=== PATIENT | female | born 1960 | race Caucasian/White ===

== ENCOUNTER 2017-06-07 08:29 | Day surgery (SDC) | payer OTHER ==
[2017-06-07] MEDS ORDERED: LR 1,000 ML IV ONE (08:42)
[2017-06-07] MEDS ORDERED: LIDOCAINE 1% 2 ML INJ ID PRN (08:42)
--- NOTE | 2017-06-07 08:56 | PDGENHP ---
History & Physical Chief Complaint: dysphagia, screening colonoscopy Relevant Physical Exam: GEN: NAD. Cardiac: RRR. Lungs: CTA B. Abd: Soft, nt, nd
[2017-06-07 08:58] VITALS: PULSE 51
[2017-06-07] MEDS ORDERED: PROPOFOL/EMULSION 500 MG/50 ML BOTTLE IV ONE (08:59)
[2017-06-07] MEDS ORDERED: ONDANSETRON 4 MG/2 ML VIAL IVP PRN (09:04)
[2017-06-07] MEDS ORDERED: ACETAMINOPHEN 500 MG TAB PO PRN (09:04)
[2017-06-07] MEDS ORDERED: NALOXONE HCL 0.4 MG/ML INJ IVP PRN (09:04)
--- NOTE | 2017-06-07 09:04 | PDANEPAE ---
ANE History of Present Illness 57 yo F w h/o dysphagia, here for EGD and screening colo ANE Past Medical History - Cardiovascular History Hx Hypertension: No Hx Arrhythmias: No Hx Chest Pain: No Hx Coronary Artery / Peripheral Vascular Disease: No Hx CHF / Valvular Disease: No Hx Palpitations: No - Pulmonary History Hx COPD: No Hx Asthma/Reactive Airway Disease: No Hx Recent Upper Respiratory Infection: No Hx Oxygen in Use at Home: No Hx Sleep Apnea: Yes Sleep Apnea Screening Result - Last Documented: Positive Pulmonary History Comment: hx of bronchitis- over 1 yr ago - Neurologic History Hx Cerebrovascular Accident: No Hx Seizures: No Hx Dementia: No - Endocrine History Hx Diabetes: No - Renal History Hx Renal Disorders: No - Liver History Hx Hepatic Disorders: No - Neurological & Psychiatric Hx Hx Neurological and Psychiatric Disorders: No Neurological / Psychiatric History Comment: bulging disc L4- no problems - Cancer History Hx Cancer: Yes 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 bilat carpal tunnel surgeries-. ganglion cyst (Paul block). R great toe fusion-2011 ANE Review of Systems Review of Systems: - Exercise capacity METS (RN): 4 METS - Systems Muscolosketal: Reports: other (Rheumatoid Arthritis) ANE Patient History - Allergies Allergies/Adverse Reactions: Penicillins Allergy (Severe, Verified 05/30/17 16:04) Itching Sulfa (Sulfonamide Antibiotics) [Sulfa(Sulfonamide Antibiotics)] Allergy (Severe , Verified 05/30/17 16:04) Itching - Home Medications Home medications: home medication list seen and reviewed Home Medications: GABAPENTIN mg PO 10/07/12 [Last Taken 06/06/17] Leflunomide [Arava 10 mg (RX)] 02/18/13 [Last Taken 06/06/17] FLUoxetine 05/30/17 [Last Taken 06/06/17] Meloxicam 05/30/17 [Last Taken 05/31/17] Orencia 05/30/17 [Last Taken 06/05/17] Oxycodone HCl 05/30/17 [Last Taken 06/07/17 06:00] Prednisone 05/30/17 [Last Taken 06/06/17] - NPO status NPO Status: no food or drink >8 hours NPO Since - Liquids (Date): 06/06/17 NPO Since - Liquids (Time): 23:40 NPO Since - Solids (Date): 06/06/17 NPO Since - Solids (Time): 09:00 - Anes Hx Anes Hx: no prior problems - Smoking Hx Smoking Status: Never smoked - Alcohol Use Alcohol Use: Rarely - Family Anes Hx Family Anes Hx: none ANE Labs/Vital Signs - Vital Signs Blood Pressure: 131/74 Heart Rate: 51 Respiratory Rate: 20 O2 Sat (%): 92 Height: 167.64 cm Weight: 104.326 kg ANE Physical Exam - Airway Neck exam: FROM Mallampati Score: Class 2 Mouth exam: normal dental/mouth exam - Pulmonary Pulmonary: no respiratory distress, clear to auscultation - Cardiovascular Cardiovascular: regular rate and rhythym, no murmur, rub, or gallop - ASA Status ASA Status: III ANE Anesthesia Plan Anesthesia Plan: GA with mask Total IV Anesthesia: Yes
[2017-06-07] MEDS ORDERED: PROPOFOL 200 MG/20 ML VIAL ONE (09:29)
--- NOTE | 2017-06-07 09:37 | GIREPORT ---
[facility] - Endoscopy Department Patient Name: Aleja Banegas Procedure Date: 06/07/2017 8:54 AM Patient Type: Outpatient Attending / ER Physician: Blaise Mcclure MD Procedure: Upper GI endoscopy Indications: Dysphagia Providers: Blaise Mcclure MD Medicines: Monitored Anesthesia Care Complications: No immediate complications. Findings: No endoscopic abnormality was evident in the esophagus to explain the patient's complaint of dysphagia. Biopsies were taken with a cold force ps for histology. Verification of patient identification for the specimen was done by the physician and nurse using the patient's name and date . Estimated blood loss was minimal. The Z-line was regular and was found 38 cm from the incisors. Localized mild inflammation characterized by erosions, erythema and friability was found in the gastric antrum. Biopsies were taken with a cold forceps for histology. Verification of patient identification for the specimen was done by the physician and nurse using the patient's name a nd date. Estimated blood loss was minimal. Localized mild inflammation characterized by congestion (edema), erosio ns and erythema was found in the duodenal bulb. Estimated Blood Loss: Estimated blood loss: none. Post Op Diagnosis: - No endoscopic esophageal abnormality to explain patient's dysphagia. Biopsied to evaluate for eosinophilic esophagitis. - Z-line regular, 38 cm from the incisors. - Gastritis. Biopsied. - Duodenitis. Recommendation: - Discharge patient to home (with escort). - Resume previous diet. - Continue present medications. - Recommend acid suppression medication. - Return to GI clinic as previously scheduled. - Await pathology results. Results are available within 10 days. - Thank you for allowing me to participate in the care of your patient. Attending Participation: I personally performed the entire procedure. Blaise Mcclure MD Blaise Mcclure MD 06/07/2017 9:36:49 AM Number of Addenda: 0 Note Initiated On: 06/07/2017 8:54 AM Total Procedure Duration Time 0 hours 10 minutes 12 seconds [email or web address]
--- NOTE | 2017-06-07 09:38 | GIREPORT ---
[facility] Surgical Services - Endoscopy Department Patient Name: Aleja Banegas Procedure Date: 06/07/2017 8:52 AM Patient Type: Outpatient Attending / REJI Physician: Blaise Mcclure MD Procedure: Colonoscopy Indications: Screening for colorectal malignant neoplasm Providers: Blaise Mcclure MD Medicines: Monitored Anesthesia Care Complications: No immediate complications. Findings: The perianal and digital rectal examinations were normal. The terminal ileum appeared normal. The colon (entire examined portion) appeared normal. The retroflexed view of the distal rectum and anal verge was normal and showed no anal or rectal abnormalities. Estimated Blood Loss: Estimated blood loss: none. Post Op Diagnosis: - The examined portion of the ileum was normal. - The entire examined colon is normal. - The distal rectum and anal verge are normal on retroflexion view. - No specimens collected. Recommendation: - Discharge patient to home (with escort). - Resume previous diet. - Continue present medications. - Repeat colonoscopy in 10 years for screening purposes. - Thank you for allowing me to participate in the care of your patient. Attending Participation: I personally performed the entire procedure. Blaise Mcclure MD Blaise Mcclure MD 06/07/2017 9:38:14 AM Number of Addenda: 0 Note Initiated On: 06/07/2017 8:52 AM Total Procedure Duration Time 0 hours 15 minutes 46 seconds [id number]
[2017-06-07 09:57] VITALS: RESP 16; O2SAT 98
[2017-06-07 10:49] VITALS: BP 137/81
[2017-06-07 12:18] VITALS: TEMP 98.6
--- NOTE | 2017-06-07 13:09 | POSTANESTH ---
Post Anesthetic Evaluation Cardiovascular Status: Normal, Stable, Similar to Pre-Op Cond Respiratory Status: Normal, Stable, Similar to Pre-op Cond. Level of Consciousness/Mental Status: Can Participate in Eval, Alert and Oriented Pain Control: Adequate, Prn Tx Ordered Nausea/Vomiting Control: Adequate, Prn Tx Ordered Complications Possibly Related to Anesthesia: None Noted
== END 2017-06-07 11:50 | disposition home or self-care (01) ==
LOC: FSGY 08:29
PROVIDERS: ATTEND Internal Medicine Gastroenterology
PROC: 0DJD8ZZ Inspection of Lower Intestinal Tract, Via Natural or Artificial Opening Endoscopic (ICD-10-PCS; principal; 2017-06-07 10:00)
PROC: 0DB68ZX Excision of Stomach, Via Natural or Artificial Opening Endoscopic, Diagnostic (ICD-10-PCS; principal; 2017-06-07 10:00)
PROC: 0DB58ZX Excision of Esophagus, Via Natural or Artificial Opening Endoscopic, Diagnostic (ICD-10-PCS; principal; 2017-06-07 10:00)
DX: Z12.11 Encounter for screening for malignant neoplasm of colon (principal); K29.50 Unspecified chronic gastritis without bleeding; K29.80 Duodenitis without bleeding
CPT/HCPCS: J2704

== ENCOUNTER → 2018-12-20 | Day surgery (SDC) | payer OTHER ==
[~2018-12-20] MED LIST: BACITRACIN 50,000 UNITS/10 ML SYR IRR ONE; BUPIVACAINE 0.5% 30 ML SDV ONE; DEXAMETHASONE 4 MG/ML VIAL IVP PRN; LIDOCAINE 2% 5 ML SDV ONE; LR 1,000 ML IV ONE; MIDAZOLAM 2 MG/2 ML VIAL IVP ONE; NALOXONE HCL 0.4 MG/ML INJ IVP PRN; ONDANSETRON 4 MG/2 ML VIAL IVP PRN; OXYCODONE/APAP 5/325 TAB PO PRN; POLYMYXIN B SULFATE 500,000 UNIT/10 ML SYR IRR ONE; PROPOFOL/EMULSION 500 MG/50 ML BOTTLE IV ONE; ceFAZolin 2 GM/DEXTROSE 100 ML IV ONE; fentaNYL 100 MCG/2 ML INJ IVP PRN
--- NOTE | 2018-12-20 14:32 | PDHPUP ---
History & Physical Update H&P update statement: This history and physical update is based on an assessment of the patient which was completed after admission or registration (within 24 hours), but prior to the surgery/procedure. H&P update: H&P reviewed & patient examined, no change in patient's condition since H&P completed
--- NOTE | 2018-12-20 14:41 | PDANEPAE ---
ANE History of Present Illness Right neuroma excision ANE Past Medical History - Cardiovascular History Hx Hypertension: No Hx Arrhythmias: No Hx Chest Pain: No Hx Coronary Artery / Peripheral Vascular Disease: No Hx CHF / Valvular Disease: No Hx Palpitations: No - Pulmonary History Hx COPD: No Hx Asthma/Reactive Airway Disease: No Hx Recent Upper Respiratory Infection: No Hx Oxygen in Use at Home: No Hx Sleep Apnea: Yes Sleep Apnea Screening Result - Last Documented: Positive Pulmonary History Comment: hx of bronchitis - Neurologic History Hx Cerebrovascular Accident: No Hx Seizures: No Hx Dementia: No - Endocrine History Hx Diabetes: No Hypothyroid: No Hyperthyroid: No Obesity: moderate - Renal History Hx Renal Disorders: No - Liver History Hx Hepatic Disorders: No - Neurological & Psychiatric Hx Hx Neurological and Psychiatric Disorders: No Neurological / Psychiatric History Comment: bulging disc L4- no problems - Cancer History Hx Cancer: Yes 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 bilat carpal tunnel surgeries-. ganglion cyst (Crystla block). R great toe fusion-2011 ANE Review of Systems Review of Systems: - Exercise capacity METS (RN): 4 METS ANE Patient History - Allergies Allergies/Adverse Reactions: Penicillins Allergy (Severe, Verified 05/30/17 16:04) Itching Sulfa (Sulfonamide Antibiotics) [Sulfa(Sulfonamide Antibiotics)] Allergy (Severe , Verified 05/30/17 16:04) Itching - Home Medications Home medications: home medication list seen and reviewed Home Medications: GABAPENTIN 200 mg PO 10/07/12 [Last Taken 12/19/18 21:00] Leflunomide [Arava 10 mg (RX)] 02/18/13 [Last Taken 12/19/18 09:00] FLUoxetine 05/30/17 [Last Taken 12/19/18 21:00] Meloxicam 05/30/17 [Last Taken 12/11/18] Orencia 125 05/30/17 [Last Taken 12/17/18] Oxycodone HCl 5 mg 05/30/17 [Last Taken 12/20/18 0900] Clonidine 12/13/18 [Last Taken 12/19/18 21:00] Herbals/Supplements -Info Only 12/13/18 [Last Taken 12/11/18] Hydroxychloroquine Sulfate 12/13/18 [Last Taken 12/19/18 09:00] Omeprazole 40 12/13/18 [Last Taken 12/20/18 0500] - NPO status NPO Status: no food or drink >8 hours NPO Since - Liquids (Date): 12/20/18 NPO Since - Liquids (Time): 09:45 NPO Since - Solids (Date): 12/19/18 NPO Since - Solids (Time): 21:00 - Smoking Hx Smoking Status: Never smoked ANE Labs/Vital Signs - Vital Signs Blood Pressure: 150/60 Heart Rate: 58 Respiratory Rate: 15 O2 Sat (%): 94 Height: 167.64 cm Weight: 99.79 kg ANE Physical Exam - Airway Neck exam: decreased ROM Mallampati Score: Class 2 Mouth exam: normal dental/mouth exam, poor dentition - ASA Status ASA Status: III (q) ANE Anesthesia Plan Anesthesia Plan: GA with mask Total IV Anesthesia: Yes
--- NOTE | 2018-12-20 14:42 | PDANEPAE ---
ANE History of Present Illness 58 year old with right foot neuroma ANE Past Medical History - Cardiovascular History Hx Hypertension: No Hx Arrhythmias: No Hx Chest Pain: No Hx Coronary Artery / Peripheral Vascular Disease: No Hx CHF / Valvular Disease: No Hx Palpitations: No - Pulmonary History Hx COPD: No Hx Asthma/Reactive Airway Disease: No Hx Recent Upper Respiratory Infection: No Hx Oxygen in Use at Home: No Hx Sleep Apnea: Yes Sleep Apnea Screening Result - Last Documented: Positive Pulmonary History Comment: hx of bronchitis - Neurologic History Hx Cerebrovascular Accident: No Hx Seizures: No Hx Dementia: No - Endocrine History Hx Diabetes: No - Renal History Hx Renal Disorders: No - Liver History Hx Hepatic Disorders: No - Neurological & Psychiatric Hx Hx Neurological and Psychiatric Disorders: No Neurological / Psychiatric History Comment: bulging disc L4- no problems - Cancer History Hx Cancer: Yes 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 bilat carpal tunnel surgeries-. ganglion cyst (Crystal block). R great toe fusion-2011 ANE Review of Systems Review of systems is: negative Review of Systems: - Exercise capacity METS (RN): 4 METS ANE Patient History - Allergies Allergies/Adverse Reactions: Penicillins Allergy (Severe, Verified 05/30/17 16:04) Itching Sulfa (Sulfonamide Antibiotics) [Sulfa(Sulfonamide Antibiotics)] Allergy (Severe , Verified 05/30/17 16:04) Itching - Home Medications Home Medications: GABAPENTIN 200 mg PO 10/07/12 [Last Taken 12/19/18 21:00] Leflunomide [Arava 10 mg (RX)] 02/18/13 [Last Taken 12/19/18 09:00] FLUoxetine 05/30/17 [Last Taken 12/19/18 21:00] Meloxicam 05/30/17 [Last Taken 12/11/18] Orencia 125 05/30/17 [Last Taken 12/17/18] Oxycodone HCl 5 mg 05/30/17 [Last Taken 12/20/18 0900] Clonidine 12/13/18 [Last Taken 12/19/18 21:00] Herbals/Supplements -Info Only 12/13/18 [Last Taken 12/11/18] Hydroxychloroquine Sulfate 12/13/18 [Last Taken 12/19/18 09:00] Omeprazole 40 12/13/18 [Last Taken 12/20/18 0500] - NPO status NPO Since - Liquids (Date): 12/20/18 NPO Since - Liquids (Time): 09:45 NPO Since - Solids (Date): 12/19/18 NPO Since - Solids (Time): 21:00 - Anes Hx Anes Hx: no prior problems - Smoking Hx Smoking Status: Never smoked ANE Labs/Vital Signs - Vital Signs Blood Pressure: 150/60 Heart Rate: 58 Respiratory Rate: 15 O2 Sat (%): 94 Height: 167.64 cm Weight: 99.79 kg ANE Physical Exam - Airway Neck exam: FROM Mallampati Score: Class 2 Mouth exam: normal dental/mouth exam - Pulmonary Pulmonary: no respiratory distress - Cardiovascular Cardiovascular: regular rate and rhythym - ASA Status ASA Status: II ANE Anesthesia Plan Anesthesia Plan: MAC
--- NOTE | 2018-12-20 15:50 | POSTANESTH ---
Post Anesthetic Evaluation Cardiovascular Status: Normal, Stable Respiratory Status: Normal, Stable Level of Consciousness/Mental Status: Can Participate in Eval Pain Control: Adequate, Prn Tx Ordered Nausea/Vomiting Control: Adequate, Prn Tx Ordered Complications Possibly Related to Anesthesia: None Noted
[2018-12-20 16:56] VITALS: BP 157/75
--- NOTE | 2018-12-21 13:05 | GOP ---
[f rep st] OPERATIVE REPORT DATE OF OPERATION: 12/20/2018 SURGEON: Alex Hurd DPM TOOL CRIB SUPERVISOR: None. ANESTHESIA: MAC with local 10 mL 0.5% Marcaine plain. PREOPERATIVE DIAGNOSIS: Neuroma, right foot. POSTOPERATIVE DIAGNOSIS: Neuroma, right foot. PROCEDURE PERFORMED: Excision intermetatarsal neuroma, right foot. FINDINGS: Gross finding consistent with diagnosis. ESTIMATED BLOOD LOSS: Zero. INDICATIONS: Put the patient with long-standing history of pain in the right foot. Patient has fail ed conservative treatment, including a series of injections and arch supports. Patient has elected t o undergo surgical intervention at this time. DESCRIPTION OF PROCEDURE: After identification, patient brought to the operating room, placed on the operating table in the supine position. Following IV sedation, local anesthesia obtained around the patient's right foot utilizing a total of 10 mL of 0.5% Marcaine plain. The foot was then scrubbed, prepped, and draped in the usual aseptic manner. A pneumatic ankle tourniquet was placed on the pat ient's right ankle with ample Webril padding. The foot was then scrubbed, prepped, and draped in the usual aseptic manner. An Esmarch bandage was utilized to exsanguinate the patient's right lower ext remity. The pneumatic ankle tourniquet was then inflated. Attention was directed to the dorsal aspect of the patient's right foot where a 3 cm linear longitudi nal incision was made over the dorsal aspect of the 3rd intermetatarsal space. Incision was deepened through the subcutaneous tissue to the level of the deep transverse intermetatarsal ligament, which was sharply transected. Care was taken to identify and retract all vital neural and vascular structu res. Bleeders were ligated and cauterized as necessary. Upon transection of this deep transverse in termetatarsal ligament and pressure from the plantar foot, the neuroma was visible within the 3rd int ermetatarsal space. This was traced distally and transected at the digital branches. The neuroma wa s traced proximally to a normal margin between the 3rd and 4th metatarsals and transected the normal margin of the nerve. This free end of the nerve was buried into the interossei muscle belly, which w as adjacent to the nerve. The neuroma was excised in total and passed from the operative field and w ill be sent to pathology for evaluation. Incision was flushed with normal sterile saline solution. Deep structures were reapproximated using 3-0 Vicryl. Subcutaneous tissue reapproximated using 3-0 Vicryl and skin reapproximated using 5-0 Vi cryl in a running subcuticular suture technique. Incision site was dressed with Steri-Strips, Ramirez silk, 4 x 4 gauze, Webril, Ilan, Walter bandage. The patient was transferred to the postoperative marcie very area with vital signs stable and vascular status intact to the right foot. Patient tolerated pr ocedure and anesthesia well. HEMOSTASIS: Right pneumatic ankle tourniquet inflated to 250 mmHg for 20 minutes. MATERIALS: 3-0, 5-0 Vicryl. INJECTABLES: None. CONDITION: Stable. /[id number]/MODL
== END | disposition home or self-care (01) ==
LOC: FSGY 12:41
PROVIDERS: ATTEND Podiatrist
PROC: 0MBS0ZZ Excision of Right Foot Bursa and Ligament, Open Approach (ICD-10-PCS; principal; 2018-12-20 14:15)
DX: G57.61 Lesion of plantar nerve, right lower limb (principal)
CPT/HCPCS: J0690; J2250; J2704

== ENCOUNTER → 2019-02-22 | Outpatient (CLI) | payer OTHER | LOC: EMCIMAGING 07:05 ==